=== PATIENT | male | born 1990 | race Caucasian/White ===

== ENCOUNTER 2023-04-07 23:15 | Emergency (ER) | payer OTHER ==
[~2023-04-07] VITALS: Ht 190.5 cm; Wt 158.8 kg
[2023-04-07 23:24] VITALS: BP 157/84; PULSE 83; RESP 18; TEMP 97.1; O2SAT 98
[2023-04-08] MEDS ORDERED: KETOROLAC 60 MG/2 ML VIAL IM ONE (02:55)
[2023-04-08] MEDS ORDERED: NAPR-54 PO (03:58)
[2023-04-08] MEDS ORDERED: LID5T TP (03:58)
[2023-04-08] MEDS ORDERED: CYCL-711 PO (03:58)
[2023-04-08 04:40] VITALS: BP 147/74; PULSE 90; RESP 20; O2SAT 99
[2023-04-10] MEDS ORDERED: CYCL-711 PO (18:48)
[2023-04-10] MEDS ORDERED: NAPR-54 PO (18:48)
[2023-04-10] MEDS ORDERED: LID5T TP (18:48)
== END 2023-04-08 04:40 | disposition home or self-care (01) ==
LOC: MED 23:15
DX: S39.012A Strain of muscle, fascia and tendon of lower back, initial encounter (principal); V49.88XA Car occupant (driver) (passenger) injured in other specified transport accidents, initial encounter; Y93.89 Activity, other specified; Y92.89 Other specified places as the place of occurrence of the external cause; Y99.8 Other external cause status
CPT/HCPCS: 72100; 96372; 99283; J1885